=== PATIENT | male | born 1945 | race Caucasian/White ===

== ENCOUNTER 2016-12-29 17:59 | Inpatient (IN) | payer MEDICARE ==
--- NOTE | ~2016-12-29 | HEMODYNAMI ---
PATIENT:TALISHA REGALADO MEDICAL RECORD: [id number] : 41 LOCATION:[facility] [id number] [facility]# [id number] ADMISSION DATE: 12/30/16 Generatedon:12/31/20169:19 Patient name: TALISHA REGALADO Patient #: [id number] SSN: : 1945 Date of study: 12/31/2016 Page: Of Hemodynamic Procedure Report Patient Data Patient Demographics Procedure consent was obtained First Name: TALISHA Gender: Male Last Name: SABINE : 1945 [facility] Initial: H Age: 71 year(s) Patient #: [id number] Race: SSN: [id number] Additional ID: [id number] Contact details [address]: [address] [place] [address] State: [place] City: [place] Zip code: [address] Past Medical History Allergies: No known allergies Admission Admission Data Admission Date: 12/30/2016 Admission Time: 16:45 Arrival Date: 12/30/2016 Arrival Time: 16:45 Admit Source: Other Insurance Payor: Private Room #: [id number] health insurance Lab Results Lab Result Date: 12/31/2016 Lab Result Time: 0:00 Biochemistry Name Units Result Min Max BUN mg/dl 14 --(--*-)-- 7 18 Creatinine mg/dl 1.1 --(--*-)-- 0.6 1.3 CBC Name Units Result Min Max Hemoglobin g/dl 15.1 --(-*--)-- 13.5 17.5 Procedure Procedure Types Cath Procedure PCI Procedure Coronary Stent Initial Miscellaneous Procedures Moderate Sedation up to 15 minutes Procedure Description Procedure Date Procedure Date: 12/31/2016 Procedure Start Time: 8:57 Procedure End Time: 9:09 Procedure Staff Name Function Thor Rios MD Performing Physician Giselle Ron RT Scrub Mervat Kingston RN Nurse Kim Salter RT Monitor Procedure Data Cath Procedure Fluoroscopy Diagnostic fluoroscopy Total fluoroscopy Time: 4.1 time: 4.1 min min Diagnostic fluoroscopy Total fluoroscopy dose: 736 dose: 736 mGy mGy Contrast Material Contrast Material Type Amount (ml) Isovue 300 55 Entry Location Entry Primary Successful Side Size Upsize Upsize Entry Closure Succes sful Closure Location (Fr) 1 (Fr) 2 (Fr) Remarks Device Remarks Femoral Right 6 Fr Vascade artery Short Closure System Estimated blood loss: 10 ml Procedure Complications No complications Procedure Medications Medication Administration Route Dosage Oxygen NC 2 l/min Heparin Flush Bag added to field 2 bags (1000units/500ml NS) 0.9% NaCl I.V. 100 ml/hr Versed I.V. 1 mg Fentanyl I.V. 50 mcg Heparin Bolus I.V. 4000 units Versed I.V. 1 mg Fentanyl I.V. 50 mcg Versed I.V. 1 mg Fentanyl I.V. 50 mcg Fentanyl I.V. 50 mcg Hemodynamics Rest HGB: 15.1 (g/dl) Heart Rate: 46 (bpm) Snapshots Pre Cath Intra NCS Post Cath Vital Signs Time Heart Resp SPO2 NIBP (mmHg) Rhythm Pain Sedation Rate (ipm) (%) Status Level (bpm) 8:36:19 50 17 97 119/73(96) NSR 0 (11) 10(A) , No pain 8:40:35 48 16 93 118/68(87) NSR 0 (11) 10(A) , No pain 8:44:51 53 16 93 125/66(80) NSR 0 (11) 10(A) , No pain 8:49:07 52 16 93 111/64(89) NSR 0 (11) 10(A) , No pain 8:53:21 51 15 92 113/59(81) NSR 0 (11) 9(A) , No pain 8:57:29 52 15 94 112/68(86) NSR 0 (11) 9(A) , No pain 9:01:37 61 14 93 120/84(100) NSR 0 (11) 9(A) , No pain 9:06:32 72 16 95 133/93(107) NSR 0 (11) 9(A) , No pain 9:14:45 60 16 95 136/71(117) NSR 0 (11) 10(A) , No pain Medications Time Medication Route Dose Verified Delivered Reason Notes E ffectiveness by by 8:35:36 Oxygen NC 2 Thor Crowell used for l/min Blanca Kingston RN procedure 8:35:52 Heparin Flush added 2 Thor Mcrae used for Bag to bags Blanca Rios MD procedure (1000units/500ml field NS) 8:36:01 0.9% NaCl I.V. 100 Thor Crowell Per ml/hr Blanca Kingston RN physician 8:50:02 Versed I.V. 1 mg Thor Herringie for sedation Blanca Kingston RN 8:50:07 Fentanyl I.V. 50 Thor Buffie for sedation mcg Blanca Kingston RN 8:56:00 Fentanyl I.V. 50 Thor Buffie for sedation mcg Blanca Kingston RN 8:56:56 Versed I.V. 1 mg Thor Buffie for sedation Blanca Kingston RN 8:59:51 Heparin Bolus I.V. 4000 Thor Buffie for verified units Blanca Kingston RN antiplatelet with dr bam rios 9:04:08 Fentanyl I.V. 50 Thor Buffie for sedation mcg Blanca Kingston RN 9:04:53 Versed I.V. 1 mg Thor Buffie for sedation Blanca Kingston RN 9:09:47 Fentanyl I.V. 50 Thor Buffie for sedation mcg Blanca Kingston RN Procedure Log Time Note 8:08:05 Informed consent obtained and on chart 8:08:22 Arrival Date: 12/30/2016 4:45:00 PM 8:08:27 Insurance Payor : Private health insurance 8:08:29 Admit Source: Other 8:09:47 Lab Result : Hemoglobin 15.1 g/dl 8:09:47 Lab Result : Creatinine 1.1 mg/dl 8:09:47 Lab Result : BUN 14 mg/dl 8:10:01 Diagnostic Cath status Elective 8:10:28 Mervat Kingston RN sent for patient. Start room use. 8:10:29 Time tracking: Regular hours 8:10:34 Plan of Care:Hemodynamics will remain stable., Cardiac rhythm will remain stable., Comfort level will be maintained., Respiratory function will remain adequate., Patient/ family verbilizes understanding of procedure., Procedure tolerated without complication., Recovers from procedure without complications.. 8:23:16 Patient received from Med II to [facility] Alert and oriented. Shinesferred to table in Supine position. 8:23:17 Warm blankets applied, and harris hugger turned on for patient comfort. 8:23:18 Correct patient and procedure confirmed by team. 8:23:18 ECG and BP/O2 sat monitors applied to patient. 8:26:14 H&P Date Dictated: 12/31/2016 Within 30 days and on chart.. 8:26:15 Pre-procedure instructions explained to patient. 8:26:15 Pre-op teaching completed and patient verbalized understanding. 8:26:17 Family in waiting room. 8:26:18 Patient NPO since Midnight. 8:26:25 Is the patient allergic to Iodine/contrast media? No. 8:26:26 Was the patient premedicated? No 8:26:27 Is patient on blood thinner?Yes 8:26:30 ACC The patient was administered the following blood thiners within the last 24 hours: ACCPlavix 8:26:36 Patient diabetic? No. 8:26:39 Previous problem with sedation/anesthesia? No ? 8:26:47 Snore? Yes 8:26:48 Sleep apnea? No 8:26:49 Deviated septum? No 8:26:50 Opens mouth fully? Yes 8:26:51 Sticks out tongue? Yes 8:26:53 Airway obstruction? No ? 8:26:59 Dentures? Yes in tight 8:27:03 Pre procedure: right dorsailis pedis pulse 1+ Palpable, but thready & weak; easily obliterated 8:27:05 Patient pain scale 0/10 ?. 8:27:12 IV patent on arrival in right wrist with 0.9% NaCl at KVO. 8:27:15 Lab results completed and on chart. 8:27:20 Left groin area was prepped with chlora-prep and draped in sterile fashion 8:27:20 Alarms reviewed by R. N. 8:27:21 Sharps counted by scrub and verified by R.N. 8:35:13 Vital chart was started 8:35:14 Baseline sample Acquired. 8:35:19 Rhythm: sinus rhythm 8:35:21 Full Disclosure recording started 8:35:36 Oxygen 2 l/min NC was given by Mervat Kingston RN; used for procedure; 8:35:52 Heparin Flush Bag (1000units/500ml NS) 2 bags added to field was given by Thor Rios MD; used for procedure; 8:36:01 0.9% NaCl 100 ml/hr I.V. was given by Mervat Kingston RN; Per physician; 8:36:22 Physician paged 8:42:59 Zero performed for pressure channel P1 8:48:17 Physician arrived 8:48:19 --------ALL STOP TIME OUT------ 8:48:20 Final Timeout: patient, procedure, and site verified with staff and physician. All members of the team are in agreement. 8:48:25 Left groin site verified by team. 8:48:29 Physical assessment completed. ASA score P 2 - A patient with mild systemic disease as per Thor Rios MD. 8:48:34 Sedation plan: IV Moderate Sedation Versed, Fentanyl 8:50:02 Versed 1 mg I.V. was given by Mervat Kingston RN; for sedation; 8:50:07 Fentanyl 50 mcg I.V. was given by Mervat Kingston RN; for sedation; 8:56:00 Fentanyl 50 mcg I.V. was given by Mervat Kingston RN; for sedation; 8:56:56 Versed 1 mg I.V. was given by Mervat Kingston RN; for sedation; 8:57:17 Procedure started. 8:57:22 Local anesthetic to left femerol artery with Lidocaine 2% by Thor Rios MD.INITIAL ACCESS ONLY 8:57:32 A 6 Fr Short sheath was inserted into the Right Femoral artery 8:58:08 Proceeding to intervention. 8:58:17 6 Fr XBLAD 4 guide catheter was inserted over the wire 8:58:26 Cordis 6FR XBLAD 4.0 guide catheter opened to sterile field. 8:58:32 Whisper wire advanced. 8:58:45 Richard Whisper J 300cm 0.014 guide wire opened to sterile field. 8:58:58 Use device set Femoral PCI 8:59:03 Acist Syringe opened to sterile field. 8:59:03 Acist Hand Control opened to sterile field. 8:59:04 Bag Decanter opened to sterile field. 8:59:05 Medline Cath Pack opened to sterile field. 8:59:08 Terumo 6Fr Bluefield Sheath opened to sterile field. 8:59:09 St Alejandro 260cm J .035 wire opened to sterile field. 8:59:10 Merit BasixCompak Inflation Kit opened to sterile field. 8:59:11 Acist Manifold opened to sterile field. 8:59:13 Tegaderm 4 x 4 opened to sterile field. 8:59:35 ACC PCI Site: pCirc has 90% stenosis. 8:59:51 Heparin Bolus 4000 units I.V. was given by Mervat Kingston RN; for antiplatelet therapy; verified with dr rios 9:03:47 Inflation number: 1 A [place] [employer]ics Sawyer 2.0 X 15 balloon was prepped and advanced across the Prox CX, then inflated to 17 RUBINA for 0:10 (min:sec). 9:04:08 Fentanyl 50 mcg I.V. was given by Mervat Kingston RN; for sedation; 9:04:16 Balloon removed over the wire. 9:04:53 Versed 1 mg I.V. was given by Mervat Kingston RN; for sedation; 9:06:02 Inflation Number: 2 A Sonicbidstronic Resolute 2.25 X 14 stent was prepped and advanced across the Prox CX. The stent was deployed at 13 RUBINA for 0:10 (min:sec). 9:06:19 Wire removed. 9:06:21 Guide catheter removed. 9:06:41 Vascade 6/7 Fr Closure Device opened to sterile field. 9:07:45 Sheath removed intact; hemostasis achieved with Vascade Closure System to the Right Femoral artery. 9:07:48 Procedure ended.(Physican Out) 9:08:09 Fluoroscopy time 04.10 minutes. 9:08:15 Flurop Dose total: 736 9:08:15 Fluoroscopy dose: 736 mGy 9:08:20 Contrast amount:Isovue 300 55ml. 9:08:22 Sharps counted by scrub and verified by R.N. 9:08:29 Insertion/operative site no bleeding no hematoma. 9:08:33 Post-op/insertion site Left Femoral artery dressed using a 4 x 4 and Tegaderm. 9:08:36 Post Procedure Pulses reassessed and unchanged 9:08:39 Post-procedure physical assessment completed. ASA score P 2 - A patient with mild systemic disease as per Thor Rios MD. 9:08:42 Post procedure rhythm: unchanged. 9:08:51 Estimated blood loss: 10 ml 9:08:53 Post procedure instruction explained to patient.Patient verbalizes understanding. 9:09:03 Procedure type changed to Cath procedure, PCI procedure, Coronary Stent Initial, Miscellaneous Procedures, Moderate Sedation up to 15 minutes 9:09:05 Procedure and supply charges have been captured, reviewed, submitted and are correct. 9:09:34 Procedure Complication : No complications 9:09:37 Vital chart was stopped 9::40 See physician's report for complete and final results. 9::45 Report given to Med II. 9::47 Fentanyl 50 mcg I.V. was given by Mervat Kingston RN; for sedation; 9::49 Patient transfered to [facility] II with Bed. 9::53 Procedure ended. 9::53 Full Disclosure recording stopped 9:10:03 End room use (Document Last) Intervention Summary Intervention Notes Time ActionType Lesion and Equipment Action# Pressure Duration Attributes Used 9:03:47 Inflate Prox CX Sherman 1 17 00:10 balloon Sci Sawyer 2.0 X 15 balloon 9:06:02 [address] stent Prox CX Medtronic 2 13 00:10 Resolute 2.25 X 14 stent Device Usage Item Name Manufacture Quantity Catalog Number Hospital Part Current Mini mal Lot# / Charge Number Stock Stock Serial# Code Cordis 6FR Cardinal 1 [id number] [id number] 012800 528808 3 XBLAD 4.0 Health guide catheter Richard Richard 1 [id number] 164545 072797 5 Whisper J Vascular 300cm 0.014 guide wire Acist Acist 1 56560 018154 551249 903561 20 Syringe Medical Systems Inc Acist Hand Acist 1 10027 520230 126968 519720 5 Control Medical Systems Inc Bag Microtek 1 2002S 661762 17380 280971 5 DecWAKU WAKU ? Medical Inc. Medline Cardinal 1 [id number] 569628 88658 582519 5 Cath Pack Telematik Terumo 6Fr Terumo 1 [id number] 732179 941293 484004 [address] Alejandro 1 870676 815509 908791 301113 30 260cm J .035 wire Merit Merit 1 [id number] 642881 895584 063739 15 Carbon Salon Medical Inflation Kit Acist Acist 1 02947 715048 538945 670897 5 Laurus [employer] Systems Inc Tegaderm 4 3M 1 [id number] 991538 131177 208507 5 x 4 Sherman Sci Sherman 1 [id number] 177927 012548 374853 1 [id number] Eyeonix 2.0 X 15 balloon Medtronic Medtronic 1 [id number] 584343 631461 6 [id number] Resolute 2.25 X 14 stent Vascade 04/06 Cardiva 1 [id number] 916361 717240 387038 5 Fr Closure Medical, Device Inc. Signature Audit [place] Stage Time Signature Unsigned Intra-Procedure 12/31/2016 Kim Salter 9:19:26 AM RT(R) Signatures Monitor : Kim Salter Signature : RT Date : Time : [place] [id number] [place] [address]
--- NOTE | ~2016-12-29 | HEMODYNAMI ---
PATIENT:TALISHA REGALADO MEDICAL RECORD: [id number] : 41 LOCATION:[address] [id number] ADMISSION DATE: 12/29/16 Generatedon:12/30/20167:50 Patient name: TALISHA REGALADO Patient #: [id number] SSN: : 1945 Date of study: 12/30/2016 Page: Of Hemodynamic Procedure Report Patient Data Patient Demographics Procedure consent was obtained First Name: TALISHA Gender: Male Last Name: SABINE : 1945 [facility] Initial: H Age: 71 year(s) Patient #: [id number] Race: Additional ID: [id number] Contact details Address: [address] [place] [address] State: [place] City: [place] Zip code: [address] Past Medical History Allergies: No known allergies Admission Admission Data Admission Date: 12/29/2016 Admission Time: 17:30 Room #: 2121 Lab Results Lab Result Date: 12/29/2016 Lab Result Time: 14:30 Biochemistry Name Units Result Min Max BUN mg/dl 14 --(--*-)-- 7 18 Creatinine mg/dl 1 --(--*-)-- 0.6 1.3 CBC Name Units Result Min Max Hematocrit % 46 --(-*--)-- 42 54 Hemoglobin g/dl 15.9 --(--*-)-- 13.5 17.5 Procedure Procedure Types Cath Procedure Diagnostic Procedure LHC LHC w/Coronaries w/Grafts PCI Procedure SVG-BMS/JENNIFER Initial Miscellaneous Procedures Moderate Sedation up to 30 minutes Procedure Description Procedure Date Procedure Date: 12/30/2016 Procedure Start Time: 7:27 Procedure End Time: 7:44 Procedure Staff Name Function Thor Rios MD Performing Physician Jocelyn Tovar RT Scrub Teagan Gay RN Nurse Gus Bedoya RT Monitor Procedure Data Cath Procedure Fluoroscopy Diagnostic fluoroscopy Total fluoroscopy Time: 4.1 time: 4.1 min min Diagnostic fluoroscopy Total fluoroscopy dose: 851 dose: 851 mGy mGy Contrast Material Contrast Material Type Amount (ml) Isovue 300 129 Entry Location Entry Primary Successful Side Size Upsize Upsize Entry Closure Succes sful Closure Location (Fr) 1 (Fr) 2 (Fr) Remarks Device Remarks Femoral Right 5 Fr 6 Fr Vascade artery Short Closure System Estimated blood loss: 10 ml Diagnostic catheters Device Type Used For End Catheter Placement Cordis 5Fr Pigtail Procedure Catheter (MP) Cordis 5Fr JL 4.0 Procedure Catheter (MP) Cordis 5Fr 3DRC Catheter Procedure (MP) Diagnostic Infinity 5Fr Procedure AR 2 MOD catheter Procedure Complications No complications Procedure Medications Medication Administration Route Dosage Versed I.V. 1 mg Fentanyl I.V. 50 mcg Oxygen NC 2 l/min Heparin Flush Bag added to field 2 bags (1000units/500ml NS) Lidocaine 2% added to field 20 Heparin Bolus I.V. 4000 units Plavix P.O. 75 mg Fentanyl I.V. 50 mcg Hemodynamics Rest HGB: 15.9 (g/dl) Heart Rate: 53 (bpm) Snapshots Pre Cath Intra NCS Post Cath Vital Signs Time Heart Resp SPO2 etCO2 NC5bick NIBP (mmHg) Rhythm Pain Sedation Rate (ipm) (%) (mmHg) (mmHg) Status Level (bpm) 7:21:43 54 14 96 0 0 139/82(124) SB 0 (11) 10(A) , No pain 7:26:44 55 14 96 0 0 132/79(108) SB 0 (11) 10(A) , No pain 7:31:00 63 16 97 0 0 133/75(116) SB 0 (11) 9(A) , No pain 7:35:15 64 14 97 0 0 135/80(103) SB 0 (11) 9(A) , No pain 7:39:30 60 14 97 0 0 133/76(104) SB 0 (11) 9(A) , No pain 7:44:27 55 16 97 0 0 136/126(133) SB 0 (11) 10(A) , No pain Medications Time Medication Route Dose Verified Delivered Reason Notes Effectiveness by by 7:13:39 Oxygen NC 2 Thor Teagan Per physician l/min Blanca Gay RN 7:15:52 Heparin Flush added 2 Thor Mcrae used for Bag to bags Blanca Rios MD procedure (1000units/500ml field NS) 7:16:03 Lidocaine 2% added 20ml Thor Mcrae used for to vial Blanca Rios MD procedure field 7:27:06 Versed I.V. 1 mg Thor Teagan for sedation Blanca Gay RN 7:27:15 Fentanyl I.V. 50 Thor Teagan for sedation mcg Blanca Gay RN 7:29:17 Fentanyl I.V. 50 Thor Teagan for sedation mcg Blanca Gay RN 7:38:42 Heparin Bolus I.V. 4000 Thor Teagan for dose units Blanca Gay RN anticoagulation verified with dr rios 7:46:31 Plavix P.O. 75 mg Thor Teagan for Blanca Gay RN antiplatelet therapy Procedure Log Time Note 6:59:48 Mervat Kingston RN sent for patient. Start room use. 6:59:50 Time tracking: Regular hours 6:59:53 Plan of Care:Hemodynamics will remain stable., Cardiac rhythm will remain stable., Comfort level will be maintained., Respiratory function will remain adequate., Patient/ family verbilizes understanding of procedure., Procedure tolerated without complication., Recovers from procedure without complications.. 7:12:19 Patient received from PCU to CCL 1 Alert and oriented. Tansferred to table in Supine position. 7:12:20 Warm blankets applied, and harris hugger turned on for patient comfort. 7:12:20 Correct patient and procedure confirmed by team. 7:12:22 Signed procedure consent form obtained from patient. 7:12:22 ECG and BP/O2 sat monitors applied to patient. 7:12:23 Full Disclosure recording started 7:13:39 Oxygen 2 l/min NC was given by Teagan Gay RN; Per physician; 7:15:52 Heparin Flush Bag (1000units/500ml NS) 2 bags added to field was given by Thor Rios MD; used for procedure; 7:16:03 Lidocaine 2% 20ml vial added to field was given by Thor Rios MD; used for procedure; 7:19:42 Vital chart was started 7:19:44 Baseline sample Acquired. 7:19:49 Rhythm: sinus rhythm 7:24:44 Lab Result : Hemoglobin 15.9 g/dl 7:24:44 Lab Result : Creatinine 1 mg/dl 7:24:44 Lab Result : BUN 14 mg/dl 7:24:44 Lab Result : Hematocrit 46 % 7:24:50 H&P Date Dictated: 12/30/2016 Within 30 days and on chart.. 7:25:13 Pre-procedure instructions explained to patient. 7:25:14 Pre-op teaching completed and patient verbalized understanding. 7:25:16 Family in waiting room. 7:25:18 Patient NPO since Midnight. 7:25:27 Patient allergic to No known allergies 7:25:29 Is the patient allergic to Iodine/contrast media? No. 7:25:31 Was the patient premedicated? No 7:25:33 Is patient on blood thinner?Yes 7:25:35 ACC The patient was administered the following blood thiners within the last 24 hours: ACCPlavix 7:25:37 Patient diabetic? Yes. 7:25:38 If diabetic: On Metformin? No 7:25:41 Previous problem with sedation/anesthesia? No ? 7:25:47 Snore? Yes 7:25:48 Sleep apnea? No 7:25:49 Deviated septum? No 7:25:50 Opens mouth fully? Yes 7:25:51 Sticks out tongue? Yes 7:25:53 Airway obstruction? No ? 7:25:55 Dentures? Yes in tight 7:26:00 Pre procedure: right dorsailis pedis pulse 1+ Palpable, but thready & weak; easily obliterated 7:26:04 Patient pain scale 0/10 ?. 7:26:12 IV patent on arrival in left antecubital with 0.9% NaCl at KVO. 7:26:15 Lab results completed and on chart. 7:26:18 Right groin area was prepped with chlora-prep and draped in sterile fashion 7:26:19 Alarms reviewed by R. N. 7:26:19 Sharps counted by scrub and verified by R.N. 7:26:22 Use device set Femoral Dx 7:26:23 Tegaderm 4 x 4 opened to sterile field. 7:26:24 Acist Manifold opened to sterile field. 7:26:25 Acist Hand Control opened to sterile field. 7:26:26 Acist Syringe opened to sterile field. 7:: Bag Decanter opened to sterile field. 7:: Medline Cath Pack opened to sterile field. 7:: Terumo 5Fr [place] Sheath opened to sterile field. 7::28 St Alejandro 260cm J .035 wire opened to sterile field. 7::29 Diagnostic Infinity 5Fr Multipack catheter opened to sterile field. 7::36 Physician arrived 7::36 --------ALL STOP TIME OUT------ 7::37 Final Timeout: patient, procedure, and site verified with staff and physician. All members of the team are in agreement. 7::38 Right groin site verified by team. 7::41 Physical assessment completed. ASA score P 2 - A patient with mild systemic disease as per Thor Rios MD. 7::43 Sedation plan: IV Moderate Sedation Versed, Fentanyl 7::06 Versed 1 mg I.V. was given by Teagan Gay RN; for sedation; 7::15 Fentanyl 50 mcg I.V. was given by Teagan Gay RN; for sedation; 7::36 Procedure started. 7::40 Local anesthetic to right femoral artery with Lidocaine 2% by Thor Rios MD.INITIAL ACCESS ONLY 7::47 A 5 Fr sheath was inserted into the Right Femoral artery 7::59 Zero performed for pressure channel P1 7:28:30 A Cordis 5Fr Pigtail Catheter (MP) was advanced over the wire and used for Procedure. 7::53 LV gram done using BRAXTON 7::56 Injector settings: Ml/sec: 10, Volume: 20, 7:28:57 LV hemodynamics recorded. 7:29:03 EF : 30 % 7:29:10 Catheter removed. 7:29:17 Fentanyl 50 mcg I.V. was given by Teagan Gay RN; for sedation; 7::40 A Cordis 5Fr JL 4.0 Catheter (MP) was advanced over the wire and used for Procedure. 7:29:58 LCA angiography performed. 7:31:09 Richard Whisper J 300cm 0.014 guide wire opened to sterile field. 7:31:10 Cellvine BasixCompak Inflation Kit opened to sterile field. 7:31:12 Terumo 6Fr [place] Sheath opened to sterile field. 7:31:37 Catheter removed. 7:31:43 A Cordis 5Fr 3DRC Catheter (MP) was advanced over the wire and used for Procedure. 7:32:34 RCA angiography performed. 7:32:44 ramona RCA occluded 7:32:51 Catheter removed. 7:33:02 A Diagnostic Infinity 5Fr AR 2 MOD catheter was advanced over the wire and used for Procedure. 7:33:41 SVG to RCA angiography performed. 7:35:10 SVG to Circ angiography performed. 7:35:13 Catheter removed. 7:35:21 Sheath upsized to a 6 Fr Short. 7:35:44 Medtronic Launcher 6Fr AR 2.0 guide catheter opened to sterile field. 7:35:51 6 Fr AR2 guide catheter was inserted over the wire 7:36:11 Guide catheter removed. 7:36:47 Medtronic Launcher 6Fr MB 2 guide catheter opened to sterile field. 7:36:54 6 Fr MB 2 guide catheter was inserted over the wire 7:37:38 SVG to RCA occluded. 7:38:42 Heparin Bolus 4000 units I.V. was given by Teagan Gay RN; for anticoagulation; dose verified with dr rios 7:38:51 whisper wire advanced. 7:38:53 Wire advanced across lesion. 7:40:02 Inflation Number: 1 A Medtronic Resolute 4.0 X 18 stent was prepped and advanced across the Aorta Right -> Dist RCA. The stent was deployed at 21 RUBINA for 0:10 (min:sec). 7:41:03 Stent catheter was removed intact over wire. 7:41:04 Wire removed. 7:41:05 Guide catheter removed. 7:41:42 Vascade 6/7 Fr Closure Device opened to sterile field. 7:42:00 Sheath removed intact; hemostasis achieved with Vascade Closure System to the Right Femoral artery. 7:42:02 Procedure ended.(Physican Out) 7:42:25 Fluoroscopy time 04.10 minutes. 7:42:29 Fluoroscopy dose: 851 mGy 7:42:29 Flurop Dose total: 851 7:42:56 Contrast amount:Isovue 300 129ml. 7:42:57 Sharps counted by scrub and verified by R.N. 7:42:58 Insertion/operative site no bleeding no hematoma. 7:43:01 Post-op/insertion site Right Femoral artery dressed using a 4 x 4 and Tegaderm. 7:43:05 Post right femoral artery:stable, soft, clean and dry 7:43:06 Post Procedure Pulses reassessed and unchanged 7:43:09 Post-procedure physical assessment completed. ASA score P 2 - A patient with mild systemic disease as per Thor Rios MD. 7:43:11 Post procedure rhythm: unchanged. 7:43:13 Estimated blood loss: 10 ml 7:43:15 Post procedure instruction explained to patient.Patient verbalizes understanding. 7:43:15 Patient needs reinforcement of post procedure teaching. 7:44:45 Procedure type changed to Cath procedure, Diagnostic procedure, LHC, LHC w/Coronaries w/Grafts, PCI procedure, SVG-BMS/JENNIFER Initial, Miscellaneous Procedures, Moderate Sedation up to 30 minutes 7:44:46 Procedure and supply charges have been captured, reviewed, submitted and are correct. 7:44:48 Procedure Complication : No complications 7:44:50 Vital chart was stopped 7:44:50 See physician's report for complete and final results. 7:44:52 Report given to PCU. 7:44:55 Patient transfered to PCU with Stretcher. 7:44:57 Procedure ended. 7:44:57 Full Disclosure recording stopped 7:45:05 ACC-PCI Only Patient was given prescriptions, or instructed by Thor Rios MD to start/continue the following medications upon discharge: Plavix 7:45:24 End room use (Document Last) 7:46:31 Plavix 75 mg P.O. was given by Teagan Gay RN; for antiplatelet therapy; Intervention Summary Intervention Notes Time ActionType Lesion and Equipment Action# Pressure Duration Attributes Used 7:40:02 Place stent Aorta Right Medtronic 1 21 00:10 -> Dist RCA Resolute 4.0 X 18 stent Device Usage Item Name Manufacture Quantity Catalog Hospital Part Current Minima l Lot# / Number Charge Number Stock Stock Serial# Code Tegaderm 4 3M 1 [id number] 586148 477329 5 x 4 Acist Acist 1 67715 487834 449395 525273 TextureMedia Acist Hand Acist 1 83977 149074 490922 556570 5 Control Medical Systems Inc Acist Acist 1 15064 094479 018941 810984 20 Syringe Medical Systems Inc Bag Microtek 1 2002S 381325 18991 933483 5 Decanter Mempile Inc. Medline Cardinal 1 [id number] 204837 36219 950833 5 Cath Pack Health Terumo 5Fr Terumo 1 [id number] 187257 193878 126927 [address] [place] [address] Alejandro 1 725961 061185 232875 123407 30 260cm J .035 wire Diagnostic Cardinal 1 [id number] 346760 11005 648605 30 Infinity Health 5Fr Multipack catheter Cordis 5Fr Cardinal 1 060889 5 Pigtail Health Catheter (MP) Cordis 5Fr Cardinal 1 784977 5 JL 4.0 Health Catheter (MP) Richard Richard 1 [id number] 358553 354963 900105 5 Whisper J Vascular 300cm 0.014 guide wire Merit Merit 1 [id number] 861024 476441 344678 15 ImmunGene Medical Inflation Kit Terumo 6Fr Terumo 1 [id number] 721544 457708 609905 40 [place] Sheath Cordis 5Fr Cardinal 1 945279 5 3DRC Health Catheter (MP) Diagnostic Cardinal 1 [id number] 990384 130917 577143 20 Infinity Health 5Fr AR 2 MOD catheter Medtronic Medtronic 1 [id number] 129616 39482 749506 1 Launcher 6Fr AR 2.0 guide catheter Medtronic Medtronic 1 [id number] 663830 48768 415553 1 Launcher 6Fr MB 2 guide catheter Medtronic Medtronic 1 [id number] 547095 627367 0 [id number] Resolute 4.0 X 18 stent Vascade 6/7 Cardiva 1 [id number] 193300 985885 139883 5 Fr Closure Medical, Device Inc. Signature Audit [place] Stage Time Signature Unsigned Intra-Procedure 12/30/2016 Gus Bedoya 7:49:58 AM RT(R) Signatures Monitor : Gus Bedoya RT Signature : Date : Time : [facility] [address] [place] [address]
[2016-12-29 20:00] VITALS: BP 131/82
--- NOTE | 2016-12-29 20:15 | NUR ---
IN SHOWER AT THIS TIME. AT BEDSIDE. WILL CONTINUE TO MONITOR. SEE NURSE ASSESSMENT.
[2016-12-30] VITALS: BP 113/70
--- NOTE | 2016-12-30 00:13 | NUR ---
SWIMMER AT BEDSIDE TO OBTAIN VITALS, CALL LIGHT IN REACH. WILL CONTINUE WITH PLAN OF CARE.
[2016-12-30 04:00] VITALS: BP 113/69
--- NOTE | 2016-12-30 06:06 | NUR ---
NO CHANGES FROM, CALL LIGHT IN REACH. WILL CONTINUE TO MONITOR.
--- NOTE | 2016-12-30 08:09 | NUR ---
BACK FROM MARKETING ASSOCIATE. VS WNL. RIGHT GROIN STABLE WITHOUT BLEEDING OR HEMATOMA NOTED. WILL MONITOR.
[2016-12-30] MEDS ORDERED: BAYER CHEWABLE81 MG PO (09:23)
[2016-12-30] MEDS ORDERED: LIPITOR20 MG PO (09:24)
[2016-12-30 10:46] LABS: BASOPHILS 0.2 % (0.0-2.0); EOSINOPHILS 1.3 % (0-7); HEMATOCRIT 44.9 % (42.0-54.0); HEMOGLOBIN 15.1 g/dL (13.5-17.5); IMMATURE GRANULOCYTES 0.2 % (0-5); LYMPHOCYTES 25.1 % (15-50); MCH 27.9 pg (26.0-34.0); MCHC 33.6 g/dL (31.0-37.0); MEAN PLATELET VOLUME 10.6 fL (7.4-10.4); MONOCYTES 7.5 % (2-11); NEUTROPHILS 65.7 % (40-80); PLATELET COUNT 125 10x3/uL (130-400); RBC 5.41 10x6/uL (4.20-6.10); RDW 14.2 % (11.5-14.5); WBC 5.2 10x3/uL (4.8-10.8)
[2016-12-30 10:58] LABS: ANION GAP 12.9 mmol/L (8-16); CALCIUM 8.5 mg/dL (8.5-10.1); CARBON DIOXIDE 27.5 mmol/L (21.0-32.0); CREATININE - SERUM 1.1 mg/dL (0.6-1.3); POTASSIUM - SERUM 4.4 mmol/L (3.5-5.1)
--- NOTE | 2016-12-30 12:05 | NUR ---
BED REST UP. GROIN STABLE.
[2016-12-30 12:11] VITALS: BP 117/68
[2016-12-30 20:00] VITALS: BP 108/57
[2016-12-31] VITALS: BP 99/65
--- NOTE | 2016-12-31 03:33 | NUR ---
NUCLEAR REACTOR ENGINEER AT BEDSIDE TO OBTAIN VITALS, CALL LIGHT IN REACH. WILL CONTINUE WITH PLAN OF CARE.
[2016-12-31 04:00] VITALS: BP 108/59
--- NOTE | 2016-12-31 07:05 | NUR ---
RECEIVED PT AAOX4 WATHCING TV NAD NOTED DENIES ANY NEEDS
[2016-12-31 08:07] VITALS: BP 108/57
[2016-12-31 11:23] VITALS: BP 98/56
--- NOTE | 2016-12-31 11:25 | NUR ---
Patient Name: TALISHA REGALADO Admission Status: Elective Accout number: [id number] Admission Date: 12-30-2016 : 1945 Admission Diagnosis: Attending: MAMADOU Current LOS: 1 Anticipated DC Date: 12-31-2016 Planned Disposition: Home Primary Insurance: [employer] CHOICE PPO MCR ADVANT Discharge Planning Comments: * Is the patient Alert and Oriented? Yes 0 * How many steps to enter\exit or inside your home? 4 0 * PCP DR. ANNE WITH [facility] 0 * [facility] IN [place], [place] 0 * Preadmission Environment Home with Family 0 * ADLs Independent 0 * Equipment None 0 * Other Equipment NO MEDICAL EQUIPMENT PROVIDER PREFERENCE 0 * List name and contact numbers for known caregivers / representatives who currently or will assist patient after discharge: GAMA REGALADO, SPOUSE, 0 * Community resources currently utilized None 0 * Please name any agencies selected above. NONE 0 * Additional services required to return to the preadmission environment? No 0 * Can the patient safely return to the preadmission environment? Yes 0 * Has this patient been hospitalized within the prior 30 days at any hospital? No 0 CM MET WITH PT IN ROOM TO DISCUSS DISCHARGE PLANNING AND NEEDS. PT WAS POST PROCEDURE, SPOUSE PARTICIPATED IN ASSESSMENT. PT LIVES AT HOME INDEPENDENTLY WITH SPOUSE. PT HAS NO MEDICAL EQUIPMENT AND NO OUTSIDE SERVICES ASSISTING IN THE HOME. CM DISCUSSED AVAILABILITY OF HOME HEALTH, REHAB SERVICES AND MEDICAL EQUIPMENT. PT/SPOUSE DENIED DISCHARGE NEEDS, PT'S SPOUSE IS HERE AND WILL BE DRIVING PT HOME AT DISCHARGE. PT PLANS TO DISCHARGE HOME WITH SPOUSE, NO ANTICIPATED NEEDS. CM TO FOLLOW AND ASSIST IF NEEDED. Cook Syrup Maker: Pedro Griggs
[2016-12-31] MEDS ORDERED: COREG 3.1253.125 MG PO (11:51)
[2016-12-31] MEDS ORDERED: PRAVACHOL40 MG PO (11:52)
[2016-12-31] MEDS ORDERED: PLAVIX75 MG PO (11:52)
[2016-12-31 12:32] VITALS: Wt 104.8 kg
--- NOTE | 2016-12-31 14:39 | NUR ---
DISCHARGE INSTRUCTIONS GIVEN TO PATIENT AND FAMILY. BOTH VOICE UNDERSTANDING. IV REMOVED BY STUDENT WITH TIP INTACT. UP TO DRESS.
--- NOTE | 2017-01-10 10:08 | OP ---
PATIENT NAME: TALISHA REGALADO MEDICAL RECORD: [id number] :41 LOCATION:D.M2 D.2121 ADMISSION DATE:12/30/16 SURGEON: ROSY LOVE MD DATE OF OPERATION: 12/30/2016 PROCEDURES: 1. PTCA stent vein graft to RCA. 2. Left heart catheterization. 3. Selective coronary angiography. 4. Vein graft angiography. 5. DOHERTY angiography. 6. Left ventriculogram. INDICATION: Non-Q-wave myocardial infarction. PROCEDURE IN DETAIL: After informed consent was obtained and after detailed explanation of risks, benefits as well as alternative therapies, the patient elected to proceed with angiogram and angioplasty. The right femoral area was prepped and draped in normal sterile fashion. The right femoral artery was cannulated via modified Seldinger technique with placement of 6-English sheath. All catheters exchanged through this sheath. FINDINGS: Left ventriculogram was performed in the standard 30-degree BRAXTON view reveals global hypokinesis throughout all segments. Overall ejection fraction in the 30% range. SELECTIVE CORONARY ANGIOGRAPHY: 1. Left main has 70% to 80% stenosis. 2. Left anterior descending has a 95% stenosis in the mid vessel. 3. The left anterior descending has a subtotal stenosis in the mid vessel. 4. Left circumflex has an 80% to 90% stenosis in the mid vessel. 5. Right coronary is totally occluded. 6. Vein graft to the LAD is closed. 7. Vein graft to the right coronary is patent; however, there is an 80% to 90% stenosis in the proximal shaft. PTCA STENT OF THE VEIN GRAFT TO THE RIGHT CORONARY: Stent used was 4.0 x 18 mm Resolute. Result was 0% residual stenosis. OVERALL IMPRESSION: Successful percutaneous transluminal coronary angioplasty stent of the vein graft to the right coronary artery going from 80% to 90% initial stenosis. PLAN: PTCA stent of the LAD and left circumflex in the near future. TRANSINT:[id number] Voice Confirmation ID: [id number] DOCUMENT ID: [id number] OPERATIVE REPORT [id number] TALISHA REGALADO ROSY LOVE MD at 1008 CC: [id number] DICTATION DATE: 12/30/16 0745 OPERATING ROOM NURSE: 12/30/16 1416 DIS IN 12/31/16 [facility] [address] [place] [address]
--- NOTE | 2017-01-10 10:08 | DS ---
PATIENT:TALISHA REGALADO :41 MEDICAL RECORD: [id number] DISCHARGE SUMMARY ADMISSION DATE: 12/30/16 DISCHARGE DATE: 12/31/16 DISCHARGE DIAGNOSES: 1. Angina. 2. Coronary artery disease. 3. Percutaneous transluminal coronary angioplasty stent right coronary artery, vein graft and left circumflex this admission. 4. Cardiomyopathy. 5. Hyperlipidemia. HOSPITAL COURSE: Mr. Regalado presents with a non-Q-wave myocardial infarction, angina, found to have severe 3-vessel coronary disease with closure of the graft to the LAD, patent graft to the RCA, but disease in this graft. He underwent successful PTCA stent of the graft to the RCA as well as the [place] left circumflex. We brought back next week for PTCA stent of the left main and LAD. He was discharged home with the addition of Coreg to his medical regimen, his blood pressure cannot tolerate an LINDA inhibitor. He was also discharged with Pravachol, aspirin and Plavix. He will follow up next week for the PTCA stent of the left main and LAD. TRANSINT:[id number] Voice Confirmation ID: [id number] DOCUMENT ID: [id number] ROSY LOVE MD at 1008 CC: [id number] DICTATION DATE: 12/31/16917 CELL OPERATOR: 01/01/17 0059 DIS IN 12/31/[address] [address]
--- NOTE | 2017-01-10 10:08 | OP ---
PATIENT NAME: TALISHA REGALADO MEDICAL RECORD: [id number] :41 LOCATION:D.M2 D.2121 ADMISSION DATE:12/30/16 SURGEON: ROSY LOVE MD DATE OF OPERATION: 12/31/2016 PROCEDURES: 1. PTCA stent left circumflex. 2. Selective coronary angiography. INDICATION: Angina and coronary artery disease. DESCRIPTION OF THE PROCEDURE: After informed consent was obtained and after detailed explanation of risks, benefits as well as alternative therapies, the patient elected to proceed with angiogram and angioplasty. The right femoral area was prepped and draped in normal sterile fashion. The right femoral artery was cannulated via modified Seldinger technique with placement of 6-Azerbaijani sheath. All catheters exchanged through this sheath. FINDINGS: The left circumflex had a 90% stenosis in the mid vessel. This was addressed with a 2.25 x 14 mm Resolute stent. Result was 0% residual stenosis. OVERALL IMPRESSION: Successful percutaneous transluminal coronary angioplasty stent of the left circumflex going from 90% initial stenosis to 0% residual. TRANSINT:[id number] Voice Confirmation ID: [id number] DOCUMENT ID: [id number] ROSY LOVE MD at 1008 CC: [id number] DICTATION DATE: 12/31/16918 WIRE DRAWING MACHINE OPERATOR: 12/31/16 1838 DIS IN 12/31/16 [id number] [place] [address]
--- NOTE | 2017-01-10 10:08 | HP ---
PATIENT: TALISHA REGALADO MEDICAL RECORD: [id number] ACCOUNT: [id number] LOCATION:[address] : 41 ADMISSION DATE: 12/30/16 HISTORY AND PHYSICAL EXAMINATION DIAGNOSES: 1. Non-Q-wave myocardial infarction. 2. Coronary artery disease. 3. Status post coronary bypass graft surgery, 2 vessels, [facility]. 4. Hyperlipidemia. HISTORY OF PRESENT ILLNESS: This is a gentleman with a past history of coronary bypass graft surgery a number of years ago, who presented to [facility] with chest discomfort and has an increased troponin compatible with a non-Q-wave myocardial infarction. PHYSICAL EXAMINATION: GENERAL APPEARANCE: Well-nourished, well-developed, appears stated age. Level of distress, comfortable. PSYCHIATRIC: Mental status, alert, normal affect. Orientation, oriented to time, place and person. EYES: Lids and conjunctiva, noninjected. No discharge, no pallor. ENT: Lips, teeth, gums, normal dentition. Oropharynx, no cyanosis, no pallor. NECK: Carotid arteries, bilateral normal upstroke, no bruits, no thrills. JUGULAR VEINS: No jugular venous pressure or distention. CERVICAL LYMPH NODES: Nontender, nonenlarged. THYROID: Not enlarged. Nontender. No nodules. LUNGS: Respiratory effort, unlabored. CHEST: Normal curvature. No thoracic deformity. No chest wall tenderness. Percussion, resonant. Auscultation, clear. No wheezes, no rales, no rhonchi. CARDIOVASCULAR: Precordial exam, nondisplaced. No heaves or pericardial thrills. Rate and rhythm, regular. Heart sounds, normal S1, normal S2. No S3, no gallop, no rub. Systolic murmur, not heard. Diastolic murmur, not heard. EXTREMITIES: No cyanosis, no edema. Peripheral pulses, full and equal in all extremities, except as noted. No bruits appreciated. ABDOMEN: Soft, nondistended. Normal aorta. No bruit. Nontender. No masses. Liver, nontender, no hepatomegaly. Spleen, nontender, no splenomegaly. MUSCULOSKELETAL: No joint tenderness. No joint swelling. No erythema. NEUROLOGICAL: Normal gait, normal strength, normal tone. SKIN: Warm and dry. REVIEW OF SYSTEMS: The patient reports easy bruising but reports no swollen glands. The patient reports no fever, no night sweats, no significant weight gain, no significant weight loss. No significant exercise tolerance. The patient reports no dry eyes, no irritation, no vision change. Patient reports no difficulty hearing and no ear pain. Patient reports no frequent nose bleeds or nose and sinus problems. Patient reports on arm pain on exertion. No shortness of breath while lying down. No history of heart murmur. Patient reports no cough, no wheezing or coughing up blood. Patient reports no abdominal pain, no vomiting. Normal appetite. No diarrhea and not vomiting blood. No nausea and no constipation. Patient reports no incontinence. No difficulty urinating. No hematuria. No increased frequency. Patient reports no muscle aches. No weakness, no arthralgias, no back pain. No swelling of the extremities. Patient reports no abnormal mole, no jaundice, no rashes. Reports no loss of consciousness. No weakness and no numbness. No seizures, dizziness, HISTORY AND PHYSICAL [id number] REGALADO,TALISHA H or headaches. The patient reports no depression, no sleep disturbance, feeling safe in a relationship and no alcohol abuse. Patient reports on fatigue. Reports no runny nose or sinus pressure. No itching, no hives, and no frequent sneezing. OVERALL IMPRESSION: Non-Q-wave myocardial infarction in a patient with a past history of coronary bypass graft surgery most likely has graft failure or recurrent hemodynamically significant disease. We will proceed with coronary angiography. Further care depends upon findings of the angiography. TRANSINT:[id number] Voice Confirmation ID: [id number] DOCUMENT ID: [id number] ROSY LOVE MD at 1008 CC: [id number] DICTATION DATE: 12/30/16 0747 CHEMICAL PROCESSOR: 12/30/16 0839 DIS IN 12/31/[address] [facility] [address] [place] [address]
== END 2016-12-31 15:30 | disposition home or self-care (01) | DRG 247 ==
LOC: OBSVTIME → D.CATH 17:59 → EDSTATUS 12-30 09:00 → D.CATH 12-30 09:00 → D.M2 12-30 15:56
PROVIDERS: ADMIT Internal Medicine Interventional Cardiology
PROC: 4A023N7 Measurement of Cardiac Sampling and Pressure, Left Heart, Percutaneous Approach (ICD-10-PCS; 2016-12-30)
PROC: B2131ZZ Fluoroscopy of Multiple Coronary Artery Bypass Grafts using Low Osmolar Contrast (ICD-10-PCS; 2016-12-30)
PROC: B2111ZZ Fluoroscopy of Multiple Coronary Arteries using Low Osmolar Contrast (ICD-10-PCS; 2016-12-30)
PROC: 027034Z Dilation of Coronary Artery, One Artery with Drug-eluting Intraluminal Device, Percutaneous Approach (ICD-10-PCS; principal; 2016-12-30 07:00)
PROC: 027034Z Dilation of Coronary Artery, One Artery with Drug-eluting Intraluminal Device, Percutaneous Approach (ICD-10-PCS; 2016-12-31)
DX: I21.4 Non-ST elevation (NSTEMI) myocardial infarction (principal); I25.10 Atherosclerotic heart disease of native coronary artery without angina pectoris; Z95.1 Presence of aortocoronary bypass graft; E78.5 Hyperlipidemia, unspecified

== ENCOUNTER 2017-01-07 09:18 | Outpatient (CLI) | payer MEDICARE ==
[~2017-01-07] VITALS: Ht 167.6 cm; Wt 105.0 kg
--- NOTE | ~2017-01-07 | HEMODYNAMI ---
PATIENT:TALISHA REGALADO MEDICAL RECORD: [id number] : 41 LOCATION:DSantoCAT ADMISSION DATE: 01/07/17 Generatedon:01/07/201713:07 Patient name: TALISHA REGALADO Patient #: [id number] SSN: : 1945 Date of study: 01/07/2017 Page: Of Hemodynamic Procedure Report Patient Data Patient Demographics Procedure consent was obtained First Name: TALISHA Gender: Male Last Name: SABINE : 1945 Middle Initial: H Age: 71 year(s) Patient #: [id number] Race: SSN: [id number] Additional ID: [id number] Contact details [address]: [address] [place] [address] State: [place] City: [place] Zip code: [address] Past Medical History Allergies: No known allergies Admission Admission Data Admission Date: 01/07/2017 Admission Time: 9:18 Arrival Date: 01/07/2017 Arrival Time: 0:00 Admit Source: Other Height (in.): 68 BSA: 2.17 (m2) Height (cm.): 172.72 BMI: 35.12 (kg/m2) Weight (lbs.): 231 Weight (kg.): 104.78 Procedure Procedure Types Cath Procedure PCI Procedure Coronary Stent Initial Miscellaneous Procedures Moderate Sedation up to 15 minutes Procedure Description Procedure Date Procedure Date: 01/07/2017 Procedure Start Time: 12:37 Procedure End Time: 12:56 Procedure Staff Name Function Thor Rios MD Performing Physician Sandra Melton RN Nurse Giselle Ron RT Scrub Kim Salter RT Monitor Procedure Data Cath Procedure Fluoroscopy Diagnostic fluoroscopy Total fluoroscopy Time: 8.9 time: 8.9 min min Diagnostic fluoroscopy Total fluoroscopy dose: 695 dose: 695 mGy mGy Contrast Material Contrast Material Type Amount (ml) Isovue 300 71 Entry Location Entry Primary Successful Side Size Upsize Upsize Entry Closure Succes sful Closure Location (Fr) 1 (Fr) 2 (Fr) Remarks Device Remarks Femoral Left 6 Fr Vascade artery Short Closure System Estimated blood loss: 10 ml Procedure Complications No complications Procedure Medications Medication Administration Route Dosage Oxygen NC 2 l/min Heparin Flush Bag added to field 2 bags (1000units/500ml NS) Lidocaine 2% added to field 20 Plavix P.O. 75 mg Fentanyl I.V. 50 mcg Versed I.V. 1 mg Fentanyl I.V. 25 mcg Versed I.V. 0.5 mg Fentanyl I.V. 25 mcg Versed I.V. 0.5 mg Heparin Bolus I.V. 4000 units Hemodynamics Rest BSA: 2.17 (m2) HGB: 15.1 (g/dl) O2 Consumption: Estimated: 232.52 (ml/min) O2 Co nsumption indexed: Estimated:107.15 (ml/min/m) Heart Rate: 49 (bpm) Snapshots Pre Cath Intra NCS Post Cath Vital Signs Time Heart Resp SPO2 NIBP (mmHg) Rhythm Pain Sedation Rate (ipm) (%) Status Level (bpm) 12:08:47 50 18 96 120/83(94) NSR 0 (11) 10(A) , No pain 12:13:07 47 17 96 119/70(100) NSR 0 (11) 9(A) , No pain 12:17:21 47 16 95 118/84(102) NSR 0 (11) 9(A) , No pain 12:21:33 49 18 95 118/81(95) NSR 0 (11) 9(A) , No pain 12:25:47 47 16 95 113/76(98) NSR 0 (11) 9(A) , No pain 12:29:59 49 18 96 112/76(97) NSR 0 (11) 9(A) , No pain 12:34:13 49 16 95 114/73(99) NSR 0 (11) 9(A) , No pain 12:38:29 49 17 97 109/76(91) NSR 0 (11) 9(A) , No pain 12:42:39 57 19 94 123/80(90) NSR 0 (11) 9(A) , No pain 12:46:55 58 18 94 114/79(93) NSR 0 (11) 9(A) , No pain 12:51:07 53 17 95 106/76(83) NSR 0 (11) 9(A) , No pain 12:55:21 59 16 96 121/69(96) NSR 0 (11) 9(A) , No pain Medications Time Medication Route Dose Verified Delivered Reason Notes Effectiveness by by 12:09:19 Oxygen NC 2 Sandra Sandra used for l/min Melton Melton newspaper clipper RN 12:09:30 Heparin Flush added 2 Sandra Sandra used for Bag to bags Melton Melton procedure (1000units/500ml field RN RN NS) 12:09:39 Lidocaine 2% added 20ml Sandra Sandra used for to vial Melton Melton procedure field RN RN 12:12:51 Plavix P.O. 75 mg Sandra Sandra for Melton Geronimo antiplatelet RN RN therapy 12:31:36 Fentanyl I.V. 50 Sandra Sandra for sedation mcg Geronimo Melton RN RN 12:31:43 Versed I.V. 1 mg Sandra Sandra for sedation Geronimo eMlton RN RN 12:36:43 Fentanyl I.V. 25 Sandra Sandra for sedation mcg Geronimo Melton RN RN 12:38:24 Versed I.V. 0.5 Sandra Sandra for sedation mg Geronimo Melton RN RN 12:38:32 Fentanyl I.V. 25 Sandra Sandra for sedation mcg Geronimo Melton RN RN 12:38:35 Versed I.V. 0.5 Sandra Sandra for sedation mg Geronimo Melton RN RN 12:40:52 Heparin Bolus I.V. 4000 Sandra Sandra for units Melton Melton anticoagulation RN funeral driver Log Time Note 12:05:46 Patient Height : 172.72 inches 12:05:51 Patient Weight : 104.78 lbs 12:05:54 Admit Source: Other 12:05:57 Arrival Date: 01/07/2017 12:00:00 AM 12:06:10 Diagnostic Cath Status : Elective 12:07:06 Sandra Melton RN sent for patient. Start room use. 12:07:08 Time tracking: Regular hours 12:07:13 Plan of Care:Hemodynamics will remain stable., Cardiac rhythm will remain stable., Comfort level will be maintained., Respiratory function will remain adequate., Patient/ family verbilizes understanding of procedure., Procedure tolerated without complication., Recovers from procedure without complications.. 12:07:14 Patient arrives emergently. 12:07:23 Patient received from Med II to CCL 3 Alert and oriented. Tansferred to table in Supine position. 12:07:24 Warm blankets applied, and harris hugger turned on for patient comfort. 12:07:24 Correct patient and procedure confirmed by team. 12:07:26 Signed procedure consent form obtained from patient. 12:07:27 ECG and BP/O2 sat monitors applied to patient. 12:07:28 Baseline sample Acquired. 12:07:28 Vital chart was started 12:07:31 Rhythm: sinus rhythm 12:07:33 Full Disclosure recording started 12:07:58 H&P Date Dictated: 12/29/2016 Within 30 days and on chart., H&P Addendum completed by physician on day of procedure. (MUST COMPLETE FOR ALL OUTPATIENTS). 12:08:02 Pre-procedure instructions explained to patient. 12:08:04 Family in waiting room. 12:08:06 Patient NPO since Midnight. 12:08:13 Is the patient allergic to Iodine/contrast media? No. 12:08:15 Is patient on blood thinner?Yes 12:08:20 ACC The patient was administered the following blood thiners within the last 24 hours: ACCAspirin, ACCPlavix 12:08:22 Patient diabetic? No. 12:08:27 Snore? Yes 12:08:29 Sleep apnea? No 12:08:37 Dentures? Yes tight 12:08:49 Patient pain scale 0/10 ?. 12:08:59 IV patent on arrival in left forearm with 0.9% NaCl at KVO. 12:09:13 Left groin area was prepped with chlora-prep and draped in sterile fashion 12:09:14 Alarms reviewed by R. N. 12:09:14 Sharps counted by scrub and verified by R.N. 12:09:15 Physician paged 12:09:16 Physician arrived 12:09:17 --------ALL STOP TIME OUT------ 12:09:17 Final Timeout: patient, procedure, and site verified with staff and physician. All members of the team are in agreement. 12:09:19 Oxygen 2 l/min NC was given by Sandra Melton RN; used for procedure; 12:: Left groin site verified by team. 12::24 Physical assessment completed. ASA score P 2 - A patient with mild systemic disease as per Sandra Melton RN. 12::28 Sedation plan: IV Moderate Sedation Versed, Fentanyl 12::30 Heparin Flush Bag (1000units/500ml NS) 2 bags added to field was given by Sandra Melton RN; used for procedure; 12::39 Lidocaine 2% 20ml vial added to field was given by Sandra Melton RN; used for procedure; 12:12:51 Plavix 75 mg P.O. was given by Sandra Melton RN; for antiplatelet therapy; 12:13:50 Use device set Femoral PCI 12:13:51 Acist Syringe opened to sterile field. 12:13:51 Acist Hand Control opened to sterile field. 12:13:52 Bag Decanter opened to sterile field. 12:13:52 Medline Cath Pack opened to sterile field. 12:13:53 Terumo 6Fr Jensen Sheath opened to sterile field. 12:13:53 St Alejandro 260cm J .035 wire opened to sterile field. 12:13:53 Merit BasixCompak Inflation Kit opened to sterile field. 12:13:54 Acist Manifold opened to sterile field. 12:13:54 Tegaderm 4 x 4 opened to sterile field. 12:14:04 Cordis 6FR XBLAD 3.5 guide catheter opened to sterile field. 12:22:44 Zero performed for pressure channel P1 12:22:56 Zero performed for pressure channel P1 12:23:08 Zero performed for pressure channel P1 12:31:36 Fentanyl 50 mcg I.V. was given by Sandra Melton RN; for sedation; 12:31:43 Versed 1 mg I.V. was given by Sandra Melton RN; for sedation; 12:33:59 PCI Cath status Elective 12:36:43 Fentanyl 25 mcg I.V. was given by Sandra Melton RN; for sedation; 12:36:57 Procedure started. 12:37:03 Local anesthetic to left femerol artery with Lidocaine 2% by Thor Rios MD.INITIAL ACCESS ONLY 12:37:15 A 6 Fr Short sheath was inserted into the Left Femoral artery 12:38:24 Versed 0.5 mg I.V. was given by Sandra Melton RN; for sedation; 12:38:32 Fentanyl 25 mcg I.V. was given by Sandra Melton RN; for sedation; 12:38:35 Versed 0.5 mg I.V. was given by Sandra Melton RN; for sedation; 12:39:09 6 Fr XBLAD 3.5 guide catheter was inserted over the wire 12:40:06 Upper Jay Sci Choice PT Extra Support J 300cm .014 gu opened to sterile field. 12:40:27 PT ex wire advanced. 12:40:29 Wire advanced across lesion. 12:40:52 Heparin Bolus 4000 units I.V. was given by Sandra Melton RN; for anticoagulation; 12:42:02 Inflation number: 1 A Upper Jay Sci Wood 1.5 X 20 balloon was prepped and advanced across the Mid LAD, then inflated to 17 RUBINA for 7:10 (min:sec). 12:42:20 Inflation number: 2 The Upper Jay Sci Wood 1.5 X 20 balloon was reinflated across the Mid LAD, to 17 RUBINA for 0:00 (min:sec). 12:42:39 Multiple inflations to 17 in mid LAD 12:44:47 Whisper jeri wire advanced 12:46:27 unable to cross with the 2.25 stent. Removing Stent. 12:47:52 Inflation number: 1 A Upper Jay Sci Wood 3.0 X 15 balloon was prepped and advanced across the Prox LAD, then inflated to 11 RUBINA for 0:10 (min:sec). 12:48:19 Inflation number: 2 The Upper Jay Sci Wood 3.0 X 15 balloon was reinflated across the Prox LAD, to 13 RUBINA for 0:10 (min:sec). 12:48:38 Inflation number: 3 The Upper Jay Sci Wood 3.0 X 15 balloon was reinflated across the Prox LAD, to 17 RUBINA for 0:10 (min:sec). 12:48:55 Balloon removed over the wire. 12:51:35 Inflation Number: 1 A Medtronic Resolute 2.25 X 30 stent was prepped and advanced across the Mid LAD1. The stent was deployed at 11 RUBINA for 0:10 (min:sec). 12:53:11 Balloon removed over the wire. 12:53:12 Wire removed. 12:53:14 Guide catheter removed. 12:53:34 Vascade 6/7 Fr Closure Device opened to sterile field. 12:53:55 Sheath removed intact; hemostasis achieved with Vascade Closure System to the Left Femoral artery. 12:53:58 Procedure ended.(Physican Out) 12:54:52 Fluoroscopy time 08.90 minutes. 12:54:57 Fluoroscopy dose: 695 mGy 12:54:57 Flurop Dose total: 695 12:55:01 Contrast amount:Isovue 300 71ml. 12:55:04 Sharps counted by scrub and verified by R.N. 12:55:08 Insertion/operative site no bleeding no hematoma. 12:55:12 Post right femoral artery:stable 12:55:13 Post Procedure Pulses reassessed and unchanged 12:55:21 Post procedure rhythm: unchanged. 12:55:24 Estimated blood loss: 10 ml 12:55:25 Post procedure instruction explained to patient.Patient verbalizes understanding. 12:55:45 Procedure and supply charges have been captured, reviewed, submitted and are correct. 12:56:43 Procedure Complication : No complications 12:56:46 Vital chart was stopped 12:56:47 See physician's report for complete and final results. 12:56:49 Report given to [facility]. 12:56:54 Patient transfered to [facility] with Stretcher. 12:56:56 Procedure ended. 12:56:56 Full Disclosure recording stopped 12:56:59 End room use (Document Last) Intervention Summary Intervention Notes Time ActionType Lesion and Equipment Action# Pressure Duration Attributes Used 12:42:02 Inflate Mid LAD Upper Jay 1 17 07:10 balloon Sci Wood 1.5 X 20 balloon 12:42:20 Reinflate Mid LAD Upper Jay 2 17 00:00 balloon Sci Wood 1.5 X 20 balloon 12:47:52 Inflate Prox LAD Upper Jay 1 11 00:10 balloon Sci Wood 3.0 X 15 balloon 12:48:19 Reinflate Prox LAD Upper Jay 2 13 00:10 balloon Sci Wood 3.0 X 15 balloon 12:48:38 Reinflate Prox LAD Upper Jay 3 17 00:10 balloon Sci Wood 3.0 X 15 balloon 12:51:35 Place stent Mid LAD1 Medtronic 1 11 00:10 Resolute 2.25 X 30 stent Device Usage Item Name Manufacture Quantity Catalog Number Hospital Part Current Mini mal Lot# / Charge Number Stock Stock Serial# Code Acist Acist 1 [id number] [id number] 637889 [id number] 20 Syringe Medical Systems Inc Acist Hand Acist 1 99112 123317 470412 401079 5 Control Medical Systems Inc Bag Microtek 1 2002S 030961 48318 974806 5 Decanter Medical Inc. Medline Cardinal 1 [id number] 318704 95023 092429 5 Cath Pack Health Terumo 6Fr Terumo 1 [id number] 065734 343362 046451 [address] Alejandro 1 090933 619419 614160 480227 30 260cm J .035 wire Merit Merit 1 [id number] 584670 026862 579958 15 BasixCompak Medical Inflation Kit Acist Acist 1 42108 352385 386260 114226 5 Manifold Medical Systems Inc Tegaderm 4 3M 1 1626W 405275 222108 335095 5 x 4 Cordis 6FR Cardinal 1 [id number] 676064 692880 008976 10 XBLAD 3.5 Health guide catheter Upper Jay Sci Upper Jay 1 [id number] 158334 486363 358754 5 Choice PT Scientific Extra Support J 300cm .014 gu Upper Jay Sci Upper Jay 1 [id number] 363296 456743 430722 1 [id number] Buru Buru Scientific 1.5 X 20 balloon Upper Jay Sci Upper Jay 1 [id number] 792104 743686 810900 1 [id number] Wood Scientific 3.0 X 15 balloon Medtronic Medtronic 1 [id number] 007837 850429 4 [id number] Resolute 2.25 X 30 stent Vascade 04/06 Cardiva 1 [id number] 122233 124877 060466 5 Fr Closure Medical, Device Inc. Signature Audit [place] Stage Time Signature Unsigned Intra-Procedure 01/07/2017 Kim Salter 1:07:18 PM RT(R) Signatures Monitor : Kim Salter Signature : RT Date : Time : [facility] [address] [place] [address]
[~2017-01-07 09:18] MED LIST: BAYER CHEWABLE81 MG PO; COREG 3.1253.125 MG PO; LIPITOR20 MG PO; PLAVIX75 MG PO; PRAVACHOL40 MG PO
[2017-01-07 09:41] VITALS: BP 115/76; Ht 167.6 cm; Wt 105.0 kg
[2017-01-07 09:56] LABS: BASOPHILS 0.4 % (0.0-2.0); HEMATOCRIT 45.5 % (42.0-54.0); HEMOGLOBIN 15.5 g/dL (13.5-17.5); IMMATURE GRANULOCYTES 0.7 % (0-5); MCH 27.7 pg (26.0-34.0); MCHC 34.1 g/dL (31.0-37.0); MCV 81.4 fL (80.0-100.0); MEAN PLATELET VOLUME 11.2 fL (7.4-10.4); MONOCYTES 9.8 % (2-11); NEUTROPHILS 62.1 % (40-80); RBC 5.59 10x6/uL (4.20-6.10); RDW 13.7 % (11.5-14.5); WBC 5.6 10x3/uL (4.8-10.8)
[2017-01-07 09:59] LABS: PLATELET COUNT 166 10x3/uL (130-400)
[2017-01-07 10:04] LABS: ANION GAP 10.8 mmol/L (8-16); CARBON DIOXIDE 27.8 mmol/L (21.0-32.0); CREATININE - SERUM 1.1 mg/dL (0.6-1.3)
[2017-01-07 10:06] LABS: POTASSIUM - SERUM 5.6 mmol/L (3.5-5.1)
--- NOTE | 2017-01-07 13:32 | NUR ---
HR 48 BP 114/87 CHEST PAIN DENIED 6 FR VASCADE L/GROIN CDI NO BLEEDING NO HEMATOMA NOTED. PULSES PRESENT AND MARKED. INSTRUCTED PATIENT TO KEEP HEAD FLAT ON PILLOW WITH LLE STRAIGHT
--- NOTE | 2017-01-07 13:58 | NUR ---
RESTING QUIETLY WITH EYES CLOSED. RESPIRATIONS EVEN AND UNLABORED. VSS WITH 6 FR VASCADE L/GROIN CDI NO BLEEDING NO HEMATOMA NOTED.
--- NOTE | 2017-01-07 14:16 | NUR ---
VSS WITH CHEST PAIN DENIED SANDWICH AND SODA TO BEDSIDE NAUSEA DENIED
--- NOTE | 2017-01-07 14:45 | NUR ---
RESTING IN BED WITH EYES CLOSED, VSS. NO C/O CHEST PAIN OR NAUSEA. LEFT GROIN CDI, NO BLEEDING OR HEMATOMA NOTED. AT BEDSIDE, CALL LIGHT WITHIN REACH.
--- NOTE | 2017-01-07 15:15 | NUR ---
LEFT GROIN CDI. VSS. NO C/O AT THIS TIME. WILL CONTINUE TO MONITOR.
--- NOTE | 2017-01-07 16:20 | NUR ---
HOB ELEVATED 30 DEGREES. LEFT GROIN DRSG CDI.
--- NOTE | 2017-01-07 16:36 | NUR ---
LEFT FA PIV D/C'D WITH CATHETER INTACT. BAND AID PLACED TO SITE. UP TO GET DRESSED.
--- NOTE | 2017-01-07 16:42 | NUR ---
UP TO RESTROOM TO VOID.
--- NOTE | 2017-01-07 16:55 | NUR ---
DISCHARGE INSTRUCTIONS GIVEN, VERBALIZED UNDERSTANDING. TAKEN OUT VIA WHEELCHAIR BY CATH PUBLIC SAFETY TELECOMMUNICATOR. LEFT FACILITY WITH FAMILY MEMBER AND ALL PERSONAL BELONGINGS.
--- NOTE | 2017-01-10 10:08 | HP ---
PATIENT: TALISHA REGALADO MEDICAL RECORD: [id number] ACCOUNT: [id number] LOCATION:JANELLE : 41 ADMISSION DATE: 01/07/17 HISTORY AND PHYSICAL EXAMINATION DATE OF SERVICE: 01/07/2017 ADMITTING DIAGNOSES: 1. Angina. 2. Coronary artery disease. 3. Recent non-Q-wave myocardial infarction with PTCA stent of the vein graft to the RCA and the circumflex with concomitant disease of the left main and left anterior descending. 4. Hyperlipidemia. HISTORY OF PRESENT ILLNESS: This is a gentleman who presents with unstable angina, non-Q-wave myocardial infarction, found to have 3-vessel coronary artery disease, underwent successful PTCA stent of the vein graft to the RCA as well as the [place] left circumflex. He is now brought back for LAD, left main. PHYSICAL EXAMINATION: GENERAL APPEARANCE: Well-nourished, well-developed, appears stated age. Level of distress, comfortable. PSYCHIATRIC: Mental status, alert, normal affect. Orientation, oriented to time, place and person. EYES: Lids and conjunctiva, noninjected. No discharge, no pallor. ENT: Lips, teeth, gums, normal dentition. Oropharynx, no cyanosis, no pallor. NECK: Carotid arteries, bilateral normal upstroke, no bruits, no thrills. JUGULAR VEINS: No jugular venous pressure or distention. CERVICAL LYMPH NODES: Nontender, nonenlarged. THYROID: Not enlarged. Nontender. No nodules. LUNGS: Respiratory effort, unlabored. CHEST: Normal curvature. No thoracic deformity. No chest wall tenderness. Percussion, resonant. Auscultation, clear. No wheezes, no rales, no rhonchi. CARDIOVASCULAR: Precordial exam, nondisplaced. No heaves or pericardial thrills. Rate and rhythm, regular. Heart sounds, normal S1, normal S2. No S3, no gallop, no rub. Systolic murmur, not heard. Diastolic murmur, not heard. EXTREMITIES: No cyanosis, no edema. Peripheral pulses, full and equal in all extremities, except as noted. No bruits appreciated. ABDOMEN: Soft, nondistended. Normal aorta. No bruit. Nontender. No masses. Liver, nontender, no hepatomegaly. Spleen, nontender, no splenomegaly. MUSCULOSKELETAL: No joint tenderness. No joint swelling. No erythema. NEUROLOGICAL: Normal gait, normal strength, normal tone. SKIN: Warm and dry. REVIEW OF SYSTEMS: The patient reports easy bruising but reports no swollen glands. The patient reports no fever, no night sweats, no significant weight gain, no significant weight loss. No significant exercise tolerance. The patient reports no dry eyes, no irritation, no vision change. Patient reports no difficulty hearing and no ear pain. Patient reports no frequent nose bleeds or nose and sinus problems. Patient reports on arm pain on exertion. No shortness of breath while lying down. No history of heart murmur. Patient reports no cough, no wheezing or coughing up blood. Patient reports no abdominal pain, no vomiting. Normal appetite. No diarrhea and not vomiting blood. No nausea and no constipation. Patient reports no incontinence. No HISTORY AND PHYSICAL [id number] TALISHA REGALADO H difficulty urinating. No hematuria. No increased frequency. Patient reports no muscle aches. No weakness, no arthralgias, no back pain. No swelling of the extremities. Patient reports no abnormal mole, no jaundice, no rashes. Reports no loss of consciousness. No weakness and no numbness. No seizures, dizziness, or headaches. The patient reports no depression, no sleep disturbance, feeling safe in a relationship and no alcohol abuse. Patient reports on fatigue. Reports no runny nose or sinus pressure. No itching, no hives, and no frequent sneezing. OVERALL IMPRESSION: Anginal symptomatology with LAD and left main stenoses. We will proceed with transcatheter revascularization of these territories. TRANSINT:[id number] Voice Confirmation ID: [id number] DOCUMENT ID: [id number] ROSY LOVE MD at 1008 CC: [id number] DICTATION DATE: 01/07/17919 ELECTRONIC PAGE MAKEUP SYSTEM OPERATOR: 01/07/17 0942 DEP CLI 01/07/17 [address] [place] [address]
--- NOTE | 2017-01-10 10:08 | OP ---
PATIENT NAME: TALISHA REGALADO MEDICAL RECORD: [id number] :41 LOCATION:D.CAT ADMISSION DATE: SURGEON: ROSY LOVE MD DATE OF OPERATION: 01/07/2017 PROCEDURES: 1. PTCA stent LAD. 2. Selective coronary angiography. INDICATION: Angina and coronary artery disease. PROCEDURE: After informed consent was obtained and after detailed explanation of risks, benefits as well as alternative therapies, the patient elected to proceed with angiogram and angioplasty. The left femoral area was prepped and draped in normal sterile fashion. Left femoral artery was cannulated via modified Seldinger technique with placement of 6-[place]izen [place] sheath. All catheters exchanged through this sheath. FINDINGS: The left anterior descending has a 99% stenosis, was addressed ____ balloon. Stenting was undertaken with a 2.25 x 30 mm Resolute stent. The left main did not appear to be greater than 50%. OVERALL IMPRESSION: Successful percutaneous transluminal coronary angioplasty stent of the left anterior descending going from 99% initial stenosis to 0% residual. TRANSINT:[id number] Voice Confirmation ID: [id number] DOCUMENT ID: [id number] ROSY LOVE MD at 1008 CC: [id number] DICTATION DATE: 01/07/17 1257 CHIEF CHEMIST: 01/07/17 1904 [facility] CLI 01/07/17 [id number] [place] [address]
== END 2017-01-07 16:55 | disposition home or self-care (01) ==
LOC: D.CATH 09:18
PROVIDERS: Internal Medicine Interventional Cardiology
DX: I25.119 Atherosclerotic heart disease of native coronary artery with unspecified angina pectoris (principal)

== ENCOUNTER 2017-01-11 03:23 | Outpatient (CLI) | payer MEDICARE ==
[~2017-01-11] VITALS: Ht 167.6 cm; Wt 104.1 kg
--- NOTE | ~2017-01-11 | HEMODYNAMI ---
PATIENT:TALISHA REGALADO MEDICAL RECORD: [id number] : 41 LOCATION:[facility] D.2116 ADMISSION DATE: 01/11/17 Generatedon:01/11/201712:14 Patient name: TALISHA REGALADO Patient #: [id number] SSN: : 1945 Date of study: 01/11/2017 Page: Of Hemodynamic Procedure Report Patient Data Patient Demographics First Name: TALISHA Gender: Male Last Name: SABINE : 1945 Middle Initial: H Age: 71 year(s) Patient #: [id number] Race: SSN: [id number] Additional ID: [id number] Contact details [address]: [address] [place] [address] State: [place] City: [place] Zip code: [address] Past Medical History Allergies: No known allergies Admission Admission Data Admission Date: 01/11/2017 Admission Time: 3:23 Room #: D.2116 Lab Results Lab Result Date: 01/10/2017 Lab Result Time: 0:00 Biochemistry Name Units Result Min Max Creatinine mg/dl 1.2 --(---*)-- 0.6 1.3 CBC Name Units Result Min Max Hemoglobin g/dl 14.8 --(-*--)-- 13.5 17.5 Procedure Procedure Types Cath Procedure PCI Procedure Coronary Stent Initial Coronary Stent Additional Miscellaneous Procedures Moderate Sedation up to 30 minutes Procedure Description Procedure Date Procedure Date: 01/11/2017 Procedure Start Time: 11:59 Procedure End Time: 12:13 Procedure Staff Name Function Thor Rios MD Performing Physician Gus Bedoya RT Scrub Osman Delgado RN Nurse Jocelyn Tovar RT Monitor Procedure Data Cath Procedure Fluoroscopy Diagnostic fluoroscopy Total fluoroscopy Time: 2.7 time: 2.7 min min Diagnostic fluoroscopy Total fluoroscopy dose: 488 dose: 488 mGy mGy Contrast Material Contrast Material Type Amount (ml) Isovue 300 59 Entry Location Entry Primary Successful Side Size Upsize Upsize Entry Closure Succes sful Closure Location (Fr) 1 (Fr) 2 (Fr) Remarks Device Remarks Femoral Right 6 Fr Exoseal artery Short Estimated blood loss: 10 ml Procedure Complications No complications Procedure Medications Medication Administration Route Dosage Oxygen NC 2 l/min Heparin Flush Bag added to field 2 bags (1000units/500ml NS) 0.9% NaCl I.V. 100 ml/hr Benadryl I.V. 50 mg Fentanyl I.V. 50 mcg Versed I.V. 1 mg Fentanyl I.V. 50 mcg Versed I.V. 1 mg Heparin Bolus I.V. 4000 units Hemodynamics Rest HGB: 14.8 (g/dl) Heart Rate: 73 (bpm) Snapshots Pre Cath Intra NCS Post Cath Vital Signs Time Heart Resp SPO2 NIBP Rhythm Pain Sedation Rate (ipm) (%) (mmHg) Status Level (bpm) 11:44:49 62 18 98 121/80(99) NSR 0 (11) 10(A) , No pain 11:49:03 48 16 98 125/67(97) NSR 0 (11) 10(A) , No pain 11:53:15 54 17 96 119/71(98) NSR 0 (11) 10(A) , No pain 11:57:22 58 16 96 120/76(88) NSR 0 (11) 9(A) , No pain 12:01:32 63 16 97 110/75(89) NSR 0 (11) 9(A) , No pain 12:05:38 76 16 96 117/77(91) NSR 0 (11) 9(A) , No pain 12:09:48 74 17 97 112/69(96) NSR 0 (11) 9(A) , No pain 12:12:26 71 17 95 105/74(87) NSR 0 (11) 9(A) , No pain Medications Time Medication Route Dose Verified Delivered Reason Notes Effectiveness by by 11:54:39 Oxygen NC 2 Osman Brewer Per physician l/min Danny Delgado RN RN 11:54:51 Heparin Flush added 2 Osman Brewer used for Bag to bags Danny Delgado site monitor (1000units/500ml field RN NS) 11:55:01 0.9% NaCl I.V. 100 Osman Osman Per physician ml/hr Danny Delgado RN RN 11:55:13 Benadryl I.V. 50 mg Osman Osman Per physician Danny Delgado RN RN 11:55:20 Fentanyl I.V. 50 Osman Osman for sedation mcg Danny Delgado RN RN 11:55:27 Versed I.V. 1 mg Osman Osman for sedation Danny Delgado RN RN 11:59:48 Fentanyl I.V. 50 Osman Osman for sedation mcg Danny Delgado RN RN 11:59:50 Versed I.V. 1 mg Osman Osman for sedation Danny Delgado RN RN 12:02:05 Heparin Bolus I.V. 4000 Osman Osman for units aDnny Delgado RN anticoagulation panel instrument repairer Log Time Note 11:26:45 Time tracking: Regular hours 11:26:49 Plan of Care:Hemodynamics will remain stable., Cardiac rhythm will remain stable., Comfort level will be maintained., Respiratory function will remain adequate., Patient/ family verbilizes understanding of procedure., Procedure tolerated without complication., Recovers from procedure without complications.. 11:26:57 Jocelyn Counts RT(R) sent for patient. Start room use. 11:43:43 Patient received from Med II to CCL 2 Alert and oriented. Tansferred to table in Supine position. 11:43:44 Warm blankets applied, and harris hugger turned on for patient comfort. 11:43:44 Correct patient and procedure confirmed by team. 11:43:45 ECG and BP/O2 sat monitors applied to patient. 11:43:47 Vital chart was started 11:43:49 Baseline sample Acquired. 11:43:56 Rhythm: sinus rhythm 11:43:59 Full Disclosure recording started 11:44:25 H&P Date Dictated: 01/11/2017 Within 30 days and on chart.. 11:44:26 Pre-procedure instructions explained to patient. 11:44:26 Pre-op teaching completed and patient verbalized understanding. 11:44:28 Family in patients room. 11:44:42 Patient NPO since Midnight. 11:44:58 Is the patient allergic to Iodine/contrast media? No. 11:45:03 Is patient on blood thinner?Yes 11:45:06 ACC The patient was administered the following blood thiners within the last 24 hours: ACCPlavix 11:45:40 Patient diabetic? No. 11:45:43 Previous problem with sedation/anesthesia? No ? 11:45:44 Snore? Yes 11:45:45 Sleep apnea? No 11:45:46 Deviated septum? No 11:45:47 Opens mouth fully? Yes 11:45:47 Sticks out tongue? Yes 11:45:49 Airway obstruction? No ? 11:45:53 Dentures? Yes In 11:45:57 Pre procedure: right dorsailis pedis pulse 2+ Normal; easily identifiable; not easily obliterated 11:46:00 Patient pain scale 0/10 ?. 11:46:06 IV patent on arrival in left forearm with 0.9% NaCl at [facility]. 11:47:01 Lab Result : Creatinine 1.2 mg/dl 11:47:01 Lab Result : Hemoglobin 14.8 g/dl 11:47:05 Lab results completed and on chart. 11:47:10 Right groin area was prepped with chlora-prep and draped in sterile fashion 11:47:11 Alarms reviewed by R. N. 11:47:11 Sharps counted by scrub and verified by R.N. 11:49:36 Use device set Femoral PCI 11:49:38 Acist Syringe opened to sterile field. 11:49:38 Acist Hand Control opened to sterile field. 11:49:39 Bag Decanter opened to sterile field. 11:49:39 Medline Cath Pack opened to sterile field. 11:49:40 Terumo 6Fr Tarkio Sheath opened to sterile field. 11:49:41 St Alejandro 260cm J .035 wire opened to sterile field. 11:49:41 Merit BasixCompak Inflation Kit opened to sterile field. 11:49:42 Acist Manifold opened to sterile field. 11:49:43 Tegaderm 4 x 4 opened to sterile field. 11:50:50 IV Extension Set opened to sterile field. 11:51:43 Richard Whisper J 300cm 0.014 guide wire opened to sterile field. 11:53:36 Final Timeout: patient, procedure, and site verified with staff and physician. All members of the team are in agreement. 11:53:38 Right groin site verified by team. 11:53:45 Physical assessment completed. ASA score P 2 - A patient with mild systemic disease as per Thor Rios MD. 11:53:49 Sedation plan: IV Moderate Sedation Versed, Fentanyl 11:54:28 Cordis 6FR XBLAD 4.0 SH guide catheter opened to sterile field. 11:54:39 Oxygen 2 l/min NC was administered by Osman Delgado RN; Per physician; 11:54:51 Heparin Flush Bag (1000units/500ml NS) 2 bags added to field was administered by Osman Delgado RN; used for procedure; 11:55:01 0.9% NaCl 100 ml/hr I.V. was administered by Osman Delgado RN; Per physician; 11:55:13 Benadryl 50 mg I.V. was administered by Osman Delgado RN; Per physician; 11:55:20 Fentanyl 50 mcg I.V. was administered by Osman Delgado RN; for sedation; 11:55:27 Versed 1 mg I.V. was administered by Osman Delgado RN; for sedation; 11:58:10 Zero performed for pressure channel P1 11:58:22 Zero performed for pressure channel P2 11:58:35 Procedure started. 11:59:32 Local anesthetic to right femoral artery with Lidocaine 2% by Thor Rios MD.INITIAL ACCESS ONLY 11:59:48 Fentanyl 50 mcg I.V. was administered by Osman Delgado RN; for sedation; 11:59:50 Versed 1 mg I.V. was administered by Osman Delgado RN; for sedation; 12:00:32 A 6 Fr Short sheath was inserted into the Right Femoral artery 12:00:44 6 Fr XBLAD 4.0 guide catheter was inserted over the wire 12:02:05 Heparin Bolus 4000 units I.V. was administered by Osman Delgado RN; for anticoagulation; 12:03:10 Whisper wire advanced. 12:04:38 Inflation Number: 1 A Medtronic Resolute 3.0 X 15 stent was prepped and advanced across the Mid LAD. The stent was deployed at 13 RUBINA for 0:10 (min:sec). 12:05:03 Stent catheter was removed intact over wire. 12:06:57 Inflation Number: 1 A Medtronic Resolute 3.5 X 12 stent was prepped and advanced across the LMCA. The stent was deployed at 17 RUBINA for 0:10 (min:sec). 12:07:30 Stent catheter was removed intact over wire. 12:07:31 Wire removed. 12:07:31 Guide catheter removed. 12:07:49 Sheath removed intact; hemostasis achieved with Exoseal to the Right Femoral artery. 12:07:53 Procedure ended.(Physican Out) 12:08:06 Fluoroscopy time 02.70 minutes. 12:08:09 Flurop Dose total: 488 12:08:09 Fluoroscopy dose: 488 mGy 12:08:27 Contrast amount:Isovue 300 59ml. 12:08:29 Sharps counted by scrub and verified by R.N. 12:08:30 Insertion/operative site no bleeding no hematoma. 12:08:40 Post-op/insertion site Right Femoral artery dressed using a 4 x 4 and Tegaderm. 12:08:45 Post right femoral artery:stable, clean and dry 12:08:47 Post Procedure Pulses reassessed and unchanged 12:08:53 Post-procedure physical assessment completed. ASA score P 2 - A patient with mild systemic disease as per Thor Rios MD. 12:08:54 Post procedure rhythm: unchanged. 12:08:58 Estimated blood loss: 10 ml 12:09:01 Post procedure instruction explained to patient.Patient verbalizes understanding. 12:09:01 Patient needs reinforcement of post procedure teaching. 12:09:52 Procedure type changed to Cath procedure, PCI procedure, Coronary Stent Initial, Coronary Stent Additional, Miscellaneous Procedures, Moderate Sedation up to 30 minutes 12:09:57 Procedure Complication : No complications 12:10:00 See physician's report for complete and final results. 12:10:13 Cordis 6Fr Exoseal opened to sterile field. 12:13:00 Procedure and supply charges have been captured, reviewed, submitted and are correct. 12:13:29 Vital chart was stopped 12:13:31 Report given to PCU. 12:13:36 Patient transfered to PCU with Bed. 12:13:44 Procedure ended. 12:13:44 Full Disclosure recording stopped 12:14:00 End room use (Document Last) Intervention Summary Intervention Notes Time ActionType Lesion and Equipment Action# Pressure Duration Attributes Used 12:04:38 Place stent Mid LAD Medtronic 1 13 00:10 Resolute 3.0 X 15 stent 12:06:57 [address] stent LMCA Medtronic 1 17 00:10 Resolute 3.5 X 12 stent Device Usage Item Name Manufacture Quantity Catalog Hospital Part Current Minimal Lot# / Number Charge Number Stock Stock Serial# Code Acist Acist 1 18916 266517 815314 460821 20 Syringe Medical Systems Inc Acist Hand Acist 1 19023 764672 270252 387182 5 Control Medical Systems Inc Bag Microtek 1 2002S 296471 33405 779948 5 Decanter Medical Inc. Medline Cardinal 1 [id number] 154594 20747 296585 5 Cath Pack Health Terumo 6Fr Terumo 1 SGE030 699269 857002 379743 [address] Alejandro 1 767528 127930 163893 197793 30 260cm J .035 wire Merit Merit 1 [id number] 872907 261488 006536 15 BasixCompak Medical Inflation Kit Acist Acist 1 14790 164146 128803 470390 5 Manifold Medical Systems Inc Tegaderm 4 3M 1 1626W 480566 993503 909405 5 x 4 IV Hospira 1 91590-03 778589 53757 222962 5 Extension Set Richard Richard 1 [id number] 540198 875623 263592 5 Whisper J Vascular 300cm 0.014 guide wire Cordis 6FR Cardinal 1 [id number] 602017 5695 997302 3 XBLAD 4.0 Health SH guide catheter Medtronic Medtronic 1 [id number] 623059 905390 5 [id number] Resolute 3.0 X 15 stent Medtronic Medtronic 1 [id number] 835996 576501 6 [id number] Resolute 3.5 X 12 stent Cordis 6Fr Cardinal 1 EX600 518528 387852 619867 10 [facility] [address] RxApps Signature Audit Rubicon Stage Time Signature Unsigned Intra-Procedure 01/11/2017 Jocelyn 12:14:20 PM Counts RT(R) Signatures Monitor : Jocelyn Signature : Counts RT Date : Time : [facility] [address] [place] [address]
--- NOTE | 2017-01-11 03:30 | NUR ---
RECEIVED PT TO ROOM 2116 ALERT OX3 FROM [facility]. ORIENTED TO ROOM AND CALL LIGHT. PT VERBALIZES NO CP OR SOB AT THIS TIME. ASSESS AND HISTORY COMPLETE.
[2017-01-11] MEDS ORDERED: CO Q-1030 MG PO (03:37)
[2017-01-11] MEDS ORDERED: VITAMIN B COMPL1 TAB PO (03:38)
[2017-01-11] MEDS ORDERED: GLUCOSAMINE & C1 CAP PO (03:38)
[2017-01-11] MEDS ORDERED: VITAMIN D31000 UNIT PO (03:39)
[2017-01-11] MEDS ORDERED: ADVIL PM CAPLET1 TAB PO (03:39)
[2017-01-11 03:40] VITALS: BP 159/79; Ht 167.6 cm; Wt 104.1 kg
[2017-01-11 04:00] VITALS: BP 159/79
[2017-01-11 08:08] VITALS: BP 122/62
--- NOTE | 2017-01-11 09:44 | NUR ---
RESTS WITH EYES CLOSED. TELEMETRY SB. CALL LIGHT IN REACH. WILL CONT. PLAN OF CARE.
--- NOTE | 2017-01-11 11:33 | NUR ---
LEAVING FOR AUDIT CONTROL CLERK BY BED.
[2017-01-11 12:03] VITALS: BP 91/47
--- NOTE | 2017-01-11 12:36 | NUR ---
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 VS WNL. RIGHT GROIN STABLE WITHOUT BLEEDING OR HEMATOMA NOTED. WILL MONITOR.
[2017-01-11 13:42] LABS: BASOPHILS 0.2 % (0.0-2.0); HEMATOCRIT 41.7 % (42.0-54.0); HEMOGLOBIN 13.9 g/dL (13.5-17.5); IMMATURE GRANULOCYTES 0.5 % (0-5); LYMPHOCYTES 21.4 % (15-50); MCH 27.5 pg (26.0-34.0); MCHC 33.3 g/dL (31.0-37.0); MCV 82.6 fL (80.0-100.0); MEAN PLATELET VOLUME 10.4 fL (7.4-10.4); MONOCYTES 10.5 % (2-11); NEUTROPHILS 65.4 % (40-80); PLATELET COUNT 141 10x3/uL (130-400); RBC 5.05 10x6/uL (4.20-6.10); RDW 13.9 % (11.5-14.5); WBC 6.1 10x3/uL (4.8-10.8)
[2017-01-11 14:05] LABS: CALC OSMOLALITY 281 mosm/kg (275-300); CALCIUM 8.8 mg/dL (8.5-10.1); CARBON DIOXIDE 29.2 mmol/L (21.0-32.0); CHLORIDE - SERUM 105 mmol/L (98-107); GLUCOSE 141 mg/dL (74-106); POTASSIUM - SERUM 4.4 mmol/L (3.5-5.1); SODIUM 140 mmol/L (136-145); UREA NITROGEN 16 mg/dL (7-18); eGFR NON AFRICAN AMERICAN 78 mL/min (90-120)
[2017-01-11 16:40] VITALS: BP 101/61
--- NOTE | 2017-01-11 19:15 | NUR ---
INITIAL ROUNDS MADE. PT LYING IN BED RESTING WELL WITH EYES CLOSED, AWAKENS EASILY WHEN NAME CALLED. RIGHT GROIN STABLE. PT VERBALIZES NO NEEDS OR C/O AT THIS TIME. CALL LIGHT IN REACH. WILL CONT TO MONITOR.
[2017-01-11 20:00] VITALS: BP 112/61
[2017-01-12] VITALS: BP 97/49
--- NOTE | 2017-01-12 03:55 | NUR ---
PATTERN MARKER AT BEDSIDE FOR VS. NEEDS ADDRESSED, CALL LIGHT IN REACH. CONT TO MONITOR.
[2017-01-12 04:00] VITALS: BP 145/87
[2017-01-12 08:05] VITALS: BP 98/63
--- NOTE | 2017-01-12 10:22 | NUR ---
IV AND TELEMETRY DCD. DC PLANS GIVEN. INDERSTANDING VOICED.
[2017-01-12 12:07] VITALS: BP 111/66
--- NOTE | 2017-01-25 14:37 | DS ---
PATIENT:TALISHA REGALADO :41 MEDICAL RECORD: [id number] DISCHARGE SUMMARY ADMISSION DATE: 01/11/17 DISCHARGE DATE: 01/12/17 DATE OF DISCHARGE: 01/12/2017 DISCHARGE DIAGNOSES: 1. Angina. 2. Coronary artery disease. 3. Percutaneous transluminal coronary angioplasty stent left main this admission. HOSPITAL COURSE: Mr. Regalado presents with continued anginal symptomatology, underwent successful PTCA stent of the left main. He had no further anginal symptomatology. Also had Imdur increased from 30 mg b.i.d. to 60 mg b.i.d. We will follow up with [facility] in 1 month. TRANSINT:[id number] Voice Confirmation ID: [id number] DOCUMENT ID: [id number] ROSY LOVE MD at 1437 CC: [id number] DICTATION DATE: 01/12/17 1001 T RAIL TURNER: 01/13/17 0237 [facility] CLI 01/12/[address] [address]
--- NOTE | 2017-01-25 14:37 | OP ---
PATIENT NAME: TALISHA REGALADO MEDICAL RECORD: [id number] :41 LOCATION:[place] ADMISSION DATE: SURGEON: ROSY LOVE MD DATE OF OPERATION: 01/11/2017 PROCEDURES: 1. PTCA stent, left main. 2. PTCA stent, LAD. 3. Selective coronary angiography. INDICATIONS: Unstable angina, coronary artery disease, previous PTCA stent. PROCEDURE IN DETAIL: After informed consent was obtained and after detailed explanation of risks, benefits as well as alternative therapies, the patient elected to proceed with angiogram and angioplasty. The right femoral area was prepped and draped in normal sterile fashion. The right femoral artery was cannulated via modified Seldinger technique with placement of 6-[place] sheath. All catheters exchanged through this sheath. FINDINGS: The left main is 80% stenosed. The left anterior descending is totally occluded in the mid vessel. The previously placed stent is ____ off; however, there does appear to be a significant stenosis just at the bifurcation affecting the diagonal. This PTCA stent of the LAD was done last week. There was very poor runoff and a very small vessel distally. This time, I do not feel that attempting to reopen the LAD would give decent long-term result. Hence, we turned our attention to the LAD itself, treating the relatively large diagonal system with a 3.0 x 15 mm Resolute stent and the left main was addressed with a 3.5 x 12 mm Resolute stent. Result was 0% residual stenosis. OVERALL IMPRESSION: Successful percutaneous transluminal coronary angioplasty stent of the left anterior descending and left main going from 80% initial stenosis to 0% residual. TRANSINT:[id number] Voice Confirmation ID: [id number] DOCUMENT ID: [id number] ROSY LOVE MD at 1437 CC: [id number] DICTATION DATE: 01/11/17 1217 CRA: 01/11/17 1348 [facility] CLI 01/12/17 [place] [id number]
== END 2017-01-12 13:00 | disposition home or self-care (01) ==
LOC: OBSVTIME → D.M2 03:23 → OBSVTIME 03:23 → D.OPS 03:23 → D.M2 03:23 → D.CVICU 03:23 → EDSTATUS 11:00 → D.OPS 01-12 13:00 → D.M2 01-12 13:00
PROVIDERS: Internal Medicine Interventional Cardiology
DX: I25.110 Atherosclerotic heart disease of native coronary artery with unstable angina pectoris (principal); Z95.5 Presence of coronary angioplasty implant and graft; Z95.1 Presence of aortocoronary bypass graft; I10 Essential (primary) hypertension; I42.9 Cardiomyopathy, unspecified
CPT/HCPCS: 93458; C9600 ×2